=== PATIENT | male | born 1980 | race American Indian/Alaskan Native ===

== ENCOUNTER 2021-01-20 21:21 | Observation (INO) | payer OTHER ==
[2021-01-20] MEDS ORDERED: ONDANSETRON 4 MG/2 ML INJ IV ONE (21:48)
[2021-01-20] MEDS ORDERED: MORPHINE 4 MG/1 ML INJ IV ONE (22:18)
[2021-01-20] MEDS ORDERED: SODIUM CHLORIDE 0.9% 1000 ML 1,000 ML IV ONE (22:18)
--- NOTE | 2021-01-20 22:33 | Emergency Department Report ---
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 intolerance since this morning. Patient reports 3 episodes of vomiting and diarrhea prior to arrival.. Patient denies fever, hematemesis, melena, hematochezia. No fever reported. No history of use abdominal surgeries. Patient states he last drank wine 2 weeks ago. Patient vomiting upon ED arrival and Zofran 8 mg provided. Patient complains of continued 10/10 epigastric pain that is worse with palpation and movement. - Related Data Allergies Allergy/AdvReac Type Severity Reaction Status Date / Time aspirin Allergy Hives Verified 01/20/21 21:45 ED Review of Systems ROS: Stated complaint: ABDOMINAL PAIN Other details as noted in HPI Comment: All other systems reviewed and negative ED Past Medical Hx - Past Medical History Additional medical history: pancreatitis? ED Physical Exam - General Limitations: No Limitations - Other Other exam information: General: Moderate distress secondary pain Head: Atraumatic Eyes: normal appearance ENT: Moist mucous membranes Neck: Normal appearance, no midline tenderness Chest: Clear to auscultation bilaterally CV: Regular rate and rhythm Abdomen: Soft, normal bowel sounds, epigastric tenderness, nondistended, no rebound or guarding Back: Normal inspection Extremity: Normal inspection, full range of motion Neuro: Alert O x 3, no facial asymmetry, speech clear, no gross motor sensory deficit Psych: Appropriate behavior Skin: No rash ED Course Vital Signs 01/20/21 01/21/21 23:42 00:34 Temperature 98.1 F Pulse Rate 71 Respiratory 12 Rate Blood Pressure 112/66 [Left] O2 Sat by Pulse 100 99 Oximetry - Reevaluation(s) Reevaluation #1: 01/21/21 01:17 Patient did developed vomiting shortly after receiving morphine and there IV Reglan provided. Nurse reports that patient initially went down to 0 after morphine. No further vomiting since Reglan. Pain now rated 3/10 in intensity. 01/21/21 01:22 Patient requesting additional pain medication denies nausea at this time 01/21/21 01:30 Patient vomited once again ED Medical Decision Making - Lab Data Result diagrams: 01/20/21 22:57 01/21/21 00:40 Lab Results 01/20/21 01/20/21 01/20/21 Range/Units 22:57 22:57 22:57 WBC 11.8 H (4.5-11.0) K/mm3 RBC 5.63 H (3.65-5.03) M/mm3 Hgb 14.8 (11.8-15.2) gm/dl Hct 46.3 H (35.5-45.6) % MCV 82 L (84-94) fl MCH 26 L (28-32) pg MCHC 32 (32-34) % RDW 16.9 H (13.2-15.2) % Plt Count 217 (140-440) K/mm3 Add Manual Diff Complete Total Counted 100 Seg Neuts % (Manual) 85.0 H (40.0-70.0) % Lymphocytes % (Manual) 13.0 L (13.4-35.0) % Monocytes % (Manual) 2.0 (0.0-7.3) % Nucleated RBC % Not Reportable Seg Neutrophils # Man 10.0 H (1.8-7.7) K/mm3 Band Neutrophils # 0.0 K/mm3 Lymphocytes # (Manual) 1.5 (1.2-5.4) K/mm3 Abs React Lymphs (Man) 0.0 K/mm3 Monocytes # (Manual) 0.2 (0.0-0.8) K/mm3 Eosinophils # (Manual) 0.0 (0.0-0.4) K/mm3 Basophils # (Manual) 0.0 (0.0-0.1) K/mm3 Metamyelocytes # 0.0 K/mm3 Myelocytes # 0.0 K/mm3 Promyelocytes # 0.0 K/mm3 Blast Cells # 0.0 K/mm3 WBC Morphology Not Reportable Hypersegmented Neuts Not Reportable Hyposegmented Neuts Not Reportable Hypogranular Neuts Not Reportable Smudge Cells Not Reportable Toxic Granulation Not Reportable Toxic Vacuolation Not Reportable Dohle Bodies Not Reportable Pelger-Huet Anomaly Not Reportable Ashwini Rods Not Reportable Platelet Estimate Consistent w auto Clumped Platelets Not Reportable Plt Clumps, EDTA Not Reportable Large Platelets Not Reportable Giant Platelets Not Reportable Platelet Satelliting Not Reportable Plt Morphology Comment Not Reportable RBC Morphology Not Reportable Dimorphic RBCs Not Reportable Polychromasia Not Reportable Hypochromasia Not Reportable Poikilocytosis Not Reportable Anisocytosis Few Microcytosis Not Reportable Macrocytosis Not Reportable Spherocytes Not Reportable Pappenheimer Bodies Not Reportable Sickle Cells Not Reportable Target Cells Few Tear Drop Cells Not Reportable Ovalocytes Not Reportable Helmet Cells Not Reportable [place] Bodies Not Reportable [place] Rings Not Reportable [place] Cells Not Reportable Bite Cells Not Reportable Crenated Cell Not Reportable Elliptocytes Not Reportable Acanthocytes (Spur) Not Reportable Rouleaux Not Reportable Hemoglobin C Crystals Not Reportable Schistocytes Rare Malaria parasites Not Reportable Matthew Bodies Not Reportable Hem Pathologist Commnt No Sodium 136 L (137-145) mmol/L Potassium TNR Chloride 102.1 (98-107) mmol/L Carbon Dioxide 23 (22-30) mmol/L Anion Gap 19 mmol/L BUN 19 (9-20) mg/dL Creatinine 0.9 (0.8-1.3) mg/dL Estimated GFR > 60 ml/min BUN/Creatinine Ratio 21 % Glucose 137 H (75-100) mg/dL Calcium 9.1 (8.4-10.2) mg/dL Magnesium 1.80 (1.7-2.3) mg/dL Total Bilirubin 0.30 (0.1-1.2) mg/dL AST 56 H (5-40) units/L ALT 50 (7-56) units/L Alkaline Phosphatase 84 (35-129) units/L Total Protein 8.0 (6.3-8.2) g/dL Albumin 5.0 (3.9-5) g/dL Albumin/Globulin Ratio 1.7 % Lipase 15 (13-60) units/L Urine Color (Yellow) Urine Turbidity (Clear) Urine pH (5.0-7.0) Ur Specific [place] (1.003-1.030) Urine Protein (Negative) mg/dL Urine Glucose (UA) (Negative) mg/dL Urine Ketones (Negative) mg/dL Urine Blood (Negative) Urine Nitrite (Negative) Urine Bilirubin (Negative) Urine Urobilinogen (<2.0) mg/dL Ur Leukocyte Esterase (Negative) Urine WBC (Auto) (0.0-6.0) /HPF Urine RBC (Auto) (0.0-6.0) /HPF U Epithel Cells (Auto) (0-13.0) /HPF Urine Mucus /HPF Plasma/Serum Alcohol < 0.01 (0-0.07) % 01/21/21 01/21/21 Range/Units 00:40 00:57 WBC (4.5-11.0) K/mm3 RBC (3.65-5.03) M/mm3 Hgb (11.8-15.2) gm/dl Hct (35.5-45.6) % MCV (84-94) fl MCH (28-32) pg MCHC (32-34) % RDW (13.2-15.2) % Plt Count (140-440) K/mm3 Add Manual Diff Total Counted Seg Neuts % (Manual) (40.0-70.0) % Lymphocytes % (Manual) (13.4-35.0) % Monocytes % (Manual) (0.0-7.3) % Nucleated RBC % Seg Neutrophils # Man (1.8-7.7) K/mm3 Band Neutrophils # K/mm3 Lymphocytes # (Manual) (1.2-5.4) K/mm3 Abs React Lymphs (Man) K/mm3 Monocytes # (Manual) (0.0-0.8) K/mm3 Eosinophils # (Manual) (0.0-0.4) K/mm3 Basophils # (Manual) (0.0-0.1) K/mm3 Metamyelocytes # K/mm3 Myelocytes # K/mm3 Promyelocytes # K/mm3 Blast Cells # K/mm3 WBC Morphology Hypersegmented Neuts Hyposegmented Neuts Hypogranular Neuts Smudge Cells Toxic Granulation Toxic Vacuolation Dohle Bodies Pelger-Huet Anomaly Ashwini Rods Platelet Estimate Clumped Platelets Plt Clumps, EDTA Large Platelets Giant Platelets Platelet Satelliting Plt Morphology Comment RBC Morphology Dimorphic RBCs Polychromasia Hypochromasia Poikilocytosis Anisocytosis Microcytosis Macrocytosis Spherocytes Pappenheimer Bodies Sickle Cells Target Cells Tear Drop Cells Ovalocytes Helmet Cells [place] Bodies [place] Rings [place] Cells Bite Cells Crenated Cell Elliptocytes Acanthocytes (Spur) Rouleaux Hemoglobin C Crystals Schistocytes Malaria parasites Matthew Bodies Hem Pathologist Commnt Sodium (137-145) mmol/L Potassium 4.7 Chloride (98-107) mmol/L Carbon Dioxide (22-30) mmol/L Anion Gap mmol/L BUN (9-20) mg/dL Creatinine (0.8-1.3) mg/dL Estimated GFR ml/min BUN/Creatinine Ratio % Glucose (75-100) mg/dL Calcium (8.4-10.2) mg/dL Magnesium (1.7-2.3) mg/dL Total Bilirubin (0.1-1.2) mg/dL AST (5-40) units/L ALT (7-56) units/L Alkaline Phosphatase (35-129) units/L Total Protein (6.3-8.2) g/dL Albumin (3.9-5) g/dL Albumin/Globulin Ratio % Lipase (13-60) units/L Urine Color Yellow (Yellow) Urine Turbidity Clear (Clear) Urine pH 5.0 (5.0-7.0) Ur Specific [place] 1.055 H (1.003-1.030) Urine Protein <15 mg/dl (Negative) mg/dL Urine Glucose (UA) Neg (Negative) mg/dL Urine Ketones 20 (Negative) mg/dL Urine Blood Neg (Negative) Urine Nitrite Neg (Negative) Urine Bilirubin Neg (Negative) Urine Urobilinogen < 2.0 (<2.0) mg/dL Ur Leukocyte Esterase Tr (Negative) Urine WBC (Auto) 7.0 H (0.0-6.0) /HPF Urine RBC (Auto) 7.0 (0.0-6.0) /HPF U Epithel Cells (Auto) < 1.0 (0-13.0) /HPF Urine Mucus 1+ /HPF Plasma/Serum Alcohol (0-0.07) % - EKG Data -: EKG Interpreted by Me EKG shows normal: sinus rhythm, intervals (qtc 402), ST-T waves (no stemi) Rate: normal (67) - EKG Data When compared to previous EKG there are: previous EKG unavailable - Radiology Data Radiology results: report reviewed CT ABDOMEN AND PELVIS WITH CONTRAST INDICATION: Pt complains of epigastric abd pain with nausea and vomiting. CONTRAST: 100 cc Omnipaque 300 IV COMPARISON: None available. All CT scans at this location are performed using CT dose reduction for ALARA by means of automated exposure control. FINDINGS: Lung bases are clear of infiltrates. No pneumoperitoneum is seen. Liver is enlarged and has a length of 21 cm. Spleen is not enlarged. No masses are seen. Gallbladder and bile ducts appear within normal limits. No bowel or urinary obstructive changes are seen. Appendix appears within normal limits. No lymphadenopathy is seen. Only minimal nonspecific free fluid is noted. The descending colon and rectosigmoid colon are not well distended for evaluation but there appears to be mild wall edema and slight surrounding inflammation. Findings are consistent with mild colitis. No obvious complication is seen. IMPRESSION: Evidence of mild colitis of the descending and rectosigmoid colon - Medical Decision Making 40-year-old male presents to the hospital nausea, vomiting, diarrhea. States he had same symptoms despite treatment in ED with morphine, Zofran, and Reglan. Positive dehydration. IV fluids provided. CT suggestive of colitis without signs of pancreatitis. Initial hyperkalemia due to hemolysis was normal upon repeat. Case discussed with hospitalist for admission for further treatment. Patient treated with Levaquin and Flagyl patient does not endorse UTI symptoms despite 7 white cells any UA. Critical Care Time: No Critical care attestation.: If time is entered above; I have spent that time in minutes in the direct care of this critically ill patient, excluding procedure time. ED Disposition Clinical Impression: Colitis, Dehydration, UTI (urinary tract infection), Intractable vomiting, Intractable abdominal pain Disposition: ADMITTED INPATIENT Is pt being admited?: No Does the pt Need Aspirin: No Condition: Stable Time of Disposition: 01:31
[2021-01-20] MEDS ORDERED: diphenhydrAMINE 50 MG/ML VIAL IV ONE (22:54)
[2021-01-20] MEDS ORDERED: METOCLOPRAMIDE 10 MG/2 ML INJ IV ONE (22:54)
[2021-01-20 23:16] LABS: Hematocrit 46.3 % (35.5-45.6); Hemoglobin 14.8 gm/dl (11.8-15.2); Mean Corpuscular HGB Conc 32 % (32-34); Mean Corpuscular Volume 82 fl (84-94); Platelet Count 217 K/mm3 (140-440); Red Blood Count 5.63 M/mm3 (3.65-5.03); Red Cell Distribution Width 16.9 % (13.2-15.2)
[2021-01-20 23:48] LABS: Alanine Aminotransferase 50 units/L (7-56); BUN/Creatinine Ratio 21; Blood Urea Nitrogen 19 mg/dL (9-20); Calcium 9.1 mg/dL (8.4-10.2)
[2021-01-21] MEDS ORDERED: SODIUM CHLORIDE 0.9% 1000 ML 1,000 ML IV ONE (00:39)
[2021-01-21 01:05] LABS: Total Cells Counted 100
[2021-01-21 01:07] LABS: Target Cells Few
[2021-01-21 01:08] LABS: Anisocytosis Few; Platelet Estimate Consistent w Auto; Schistocytes Rare
[2021-01-21 01:10] LABS: Bilirubin,Urine NEG (Negative); Blood,Urine NEG (Negative); Color,Urine Yellow (Yellow); Mucus,Urine 1+ /HPF; Protein,Urine <15 mg/dL mg/dL (Negative); Urobilinogen,Urine < 2.0 mg/dL (<2.0)
--- NOTE | 2021-01-21 01:17 | Cat Scan Report ---
CT ABDOMEN AND PELVIS WITH CONTRAST INDICATION: Pt complains of epigastric abd pain with nausea and vomiting. CONTRAST: 100 cc Omnipaque 300 IV COMPARISON: None available. All CT scans at this location are performed using CT dose reduction for ALARA by means of automated e xposure control. FINDINGS: Lung bases are clear of infiltrates. No pneumoperitoneum is seen. Liver is enlarged and has a length of 21 cm. Spleen is not enlarged. No masses are seen. Gallbladder and bile ducts appear wit hin normal limits. No bowel or urinary obstructive changes are seen. Appendix appears within normal l imits. No lymphadenopathy is seen. Only minimal nonspecific free fluid is noted. The descending colon and rectosigmoid colon are not well distended for evaluation but there appears t o be mild wall edema and slight surrounding inflammation. Findings are consistent with mild colitis. No obvious complication is seen. IMPRESSION: Evidence of mild colitis of the descending and rectosigmoid colon Signer Name: Blaine Rivers MD Signed: 01/21/2021 1:12 AM Workstation Name: [id number]
[2021-01-21] MEDS ORDERED: MORPHINE 4 MG/1 ML INJ IV ONE (01:22)
[2021-01-21] MEDS ORDERED: metroNIDAZOLE/NS 500 MG/100 ML 500 MG/100 ML BAG IV ONE (01:23)
[2021-01-21] MEDS ORDERED: NALOXONE 0.4 MG/1 ML INJ IV PRN (03:00)
[2021-01-21] MEDS ORDERED: MORPHINE 2 MG/1 ML INJ IV PRN (03:00)
[2021-01-21] MEDS ORDERED: LORazepam 2 MG/ML VIAL IV PRN (03:00)
[2021-01-21] MEDS ORDERED: ACETAMINOPHEN 325 MG TAB PO PRN (03:00)
[2021-01-21] MEDS ORDERED: ONDANSETRON 4 MG/2 ML INJ IV PRN (03:00)
[2021-01-21] MEDS ORDERED: METOCLOPRAMIDE 10 MG/2 ML INJ IV PRN (03:00)
[2021-01-21] MEDS ORDERED: MORPHINE 4 MG/1 ML INJ IV PRN (03:00)
--- NOTE | 2021-01-21 03:23 | History and Physical Report ---
History of Present Illness Date of examination: 01/21/21 Date of admission: 01/21/2021 Chief complaint: Nausea, vomiting, abdominal pain History of present illness: 40-year-old male with history of alcohol induced pancreatitis who presents to [facility] ED with complaints of abdominal pain, nausea, vomiting, and diarrhea on day. Patient reports nausea and inability to tolerate oral intake since this morning. He complains of multiple (3-4 episodes prior to arriving to the ED, and 4-5 episodes while in the ED) episodes of vomiting. Denies hematemesis endorses diarrhea, but denies hematochezia or melena. Additionally patient complains of 10/10 sharp constant abdominal pain which is worse with palpation and movement, and relieved with pain meds. Reports he last drank wine approximately 2 weeks ago. Denies any other recent alcohol intake, or illicit drug use/abuse. Denies fever, chills, constipation, hematemesis, hemoptysis, recent alcohol intake, history of abdominal surgery, flank pain, hematuria, loss of smell/taste, headache, body aches, or recent sick contacts Past History Past Medical History: other (Alcohol induced pancreatitis) Past Surgical History: No surgical history Social history: lives with family, alcohol abuse, full code. denies: smoking, prescription drug abuse, IV drug use Family history: no significant family history Medications and Allergies Allergies Allergy/AdvReac Type Severity Reaction Status Date / Time aspirin Allergy Hives Verified 01/20/21 21:45 Active Meds: Active Medications Acetaminophen (Acetaminophen 325 Mg Tab) 650 mg PO Q4H PRN PRN Reason: Pain MILD(1-3)/Fever >100.5/BERNAL Famotidine (Famotidine 20 Mg/2 Ml Inj) 20 mg IV BID RONNIE Heparin Sodium (Porcine) (Heparin 5,000 Unit/1 Ml Vial) 5,000 unit SUB-Q Q12HR RONNIE Dextrose/Sodium Chloride (D5/0.45ns) 1,000 mls @ 100 mls/hr IV DIRECT RONNIE Piperacillin Sod/Tazobactam Sod (Zosyn/Ns 4.5gm/100ml) 4.5 gm in 100 mls @ 200 mls/hr IV Q8H RONNIE; Protocol Lorazepam (Lorazepam 2 Mg/Ml Vial) 2 mg IV Q1H PRN PRN Reason: CIWA-Ar 8-15 Metoclopramide HCl (Metoclopramide 10 Mg/2 Ml Inj) 10 mg IV Q6H PRN PRN Reason: Nausea And Vomiting Morphine Sulfate (Morphine 2 Mg/1 Ml Inj) 2 mg IV Q4H PRN PRN Reason: Pain, Moderate (4-6) Morphine Sulfate (Morphine 4 Mg/1 Ml Inj) 4 mg IV Q4H PRN PRN Reason: Pain , Severe (7-10) Naloxone HCl (Naloxone 0.4 Mg/1 Ml Inj) 0.1 mg IV Q2MIN PRN PRN Reason: Res Rate </= 8 or 02 SAT < 92% Ondansetron HCl (Ondansetron 4 Mg/2 Ml Inj) 4 mg IV Q6H PRN PRN Reason: Nausea And Vomiting Sodium Chloride (Sodium Chloride 0.9% 10 Ml Flush Syringe) 10 ml IV BID RONNIE Sodium Chloride (Sodium Chloride 0.9% 10 Ml Flush Syringe) 10 ml IV PRN PRN PRN Reason: LINE FLUSH Review of Systems All systems: negative (As noted in HPI) Exam - Physical Exam Narrative exam: Physical exam General appearance: Present: No acute distress, alert and oriented 3, adult male - EENT Eyes: Present: PERRL, EOM intact ENT: hearing intact, normal dentition - Neck Neck: Present: supple, normal ROM - Respiratory Respiratory effort: Non-labored Respiratory: Clear throughout - Cardiovascular Heart rate: 88 (bpm) Rhythm: Sinus Heart Sounds: Present: S1 & S2. Absent: rub, click - Extremities Extremities: no ischemia, pulses intact, - Peripheral Assessment Peripheral Pulses: within normal limits - Abdominal General gastrointestinal: soft, epigastric tenderness, normal bowel sounds - Integumentary Integumentary: Present: warm, dry - Musculoskeletal Musculoskeletal: Able to move all extremities -Neurological Neurological: CN II-XII intact - Psychiatric Psychiatric: cooperative - Constitutional Vitals: Temp Pulse Resp BP Pulse Ox 98.1 F 74 11 L 102/49 98 01/20/21 23:42 01/21/21 02:00 01/21/21 02:00 01/21/21 02:00 01/21/21 02:00 Results - Labs CBC & Chem 7: 01/20/21 22:57 01/21/21 00:40 Labs: Laboratory Last Values WBC 11.8 K/mm3 (4.5-11.0) H 01/20/21 22:57 RBC 5.63 M/mm3 (3.65-5.03) H 01/20/21 22:57 Hgb 14.8 gm/dl (11.8-15.2) 01/20/21 22:57 Hct 46.3 % (35.5-45.6) H 01/20/21 22:57 MCV 82 fl (84-94) L 01/20/21 22:57 MCH 26 pg (28-32) L 01/20/21 22:57 MCHC 32 % (32-34) 01/20/21 22:57 RDW 16.9 % (13.2-15.2) H 01/20/21 22:57 Plt Count 217 K/mm3 (140-440) 01/20/21 22:57 Add Manual Diff Complete 01/20/21 22:57 Total Counted 100 01/20/21 22:57 Seg Neuts % (Manual) 85.0 % (40.0-70.0) H 01/20/21 22:57 Lymphocytes % (Manual) 13.0 % (13.4-35.0) L 01/20/21 22:57 Monocytes % (Manual) 2.0 % (0.0-7.3) 01/20/21 22:57 Nucleated RBC % Not Reportable 01/20/21 22:57 Seg Neutrophils # Man 10.0 K/mm3 (1.8-7.7) H 01/20/21 22:57 Band Neutrophils # 0.0 K/mm3 01/20/21 22:57 Lymphocytes # (Manual) 1.5 K/mm3 (1.2-5.4) 01/20/21 22:57 Abs React Lymphs (Man) 0.0 K/mm3 01/20/21 22:57 Monocytes # (Manual) 0.2 K/mm3 (0.0-0.8) 01/20/21 22:57 Eosinophils # (Manual) 0.0 K/mm3 (0.0-0.4) 01/20/21 22:57 Basophils # (Manual) 0.0 K/mm3 (0.0-0.1) 01/20/21 22:57 Metamyelocytes # 0.0 K/mm3 01/20/21 22:57 Myelocytes # 0.0 K/mm3 01/20/21 22:57 Promyelocytes # 0.0 K/mm3 01/20/21 22:57 Blast Cells # 0.0 K/mm3 01/20/21 22:57 WBC Morphology Not Reportable 01/20/21 22:57 Hypersegmented Neuts Not Reportable 01/20/21 22:57 Hyposegmented Neuts Not Reportable 01/20/21 22:57 Hypogranular Neuts Not Reportable 01/20/21 22:57 Smudge Cells Not Reportable 01/20/21 22:57 Toxic Granulation Not Reportable 01/20/21 22:57 Toxic Vacuolation Not Reportable 01/20/21 22:57 Dohle Bodies Not Reportable 01/20/21 22:57 Pelger-Huet Anomaly Not Reportable 01/20/21 22:57 Ashwini Rods Not Reportable 01/20/21 22:57 Platelet Estimate Consistent w auto 01/20/21 22:57 Clumped Platelets Not Reportable 01/20/21 22:57 Plt Clumps, EDTA Not Reportable 01/20/21 22:57 Large Platelets Not Reportable 01/20/21 22:57 Giant Platelets Not Reportable 01/20/21 22:57 Platelet Satelliting Not Reportable 01/20/21 22:57 Plt Morphology Comment Not Reportable 01/20/21 22:57 RBC Morphology Not Reportable 01/20/21 22:57 Dimorphic RBCs Not Reportable 01/20/21 22:57 Polychromasia Not Reportable 01/20/21 22:57 Hypochromasia Not Reportable 01/20/21 22:57 Poikilocytosis Not Reportable 01/20/21 22:57 Anisocytosis Few 01/20/21 22:57 Microcytosis Not Reportable 01/20/21 22:57 Macrocytosis Not Reportable 01/20/21 22:57 Spherocytes Not Reportable 01/20/21 22:57 Pappenheimer Bodies Not Reportable 01/20/21 22:57 Sickle Cells Not Reportable 01/20/21 22:57 Target Cells Few 01/20/21 22:57 Tear Drop Cells Not Reportable 01/20/21 22:57 Ovalocytes Not Reportable 01/20/21 22:57 Helmet Cells Not Reportable 01/20/21 22:57 [place] Bodies Not Reportable 01/20/21 22:57 [place] Rings Not Reportable 01/20/21 22:57 [place] Cells Not Reportable 01/20/21 22:57 Bite Cells Not Reportable 01/20/21 22:57 Crenated Cell Not Reportable 01/20/21 22:57 Elliptocytes Not Reportable 01/20/21 22:57 Acanthocytes (Spur) Not Reportable 01/20/21 22:57 Rouleaux Not Reportable 01/20/21 22:57 Hemoglobin C Crystals Not Reportable 01/20/21 22:57 Schistocytes Rare 01/20/21 22:57 Malaria parasites Not Reportable 01/20/21 22:57 Matthew Bodies Not Reportable 01/20/21 22:57 Hem Pathologist Commnt No 01/20/21 22:57 Sodium 136 mmol/L (137-145) L 01/20/21 22:57 Potassium 4.7 mmol/L (3.6-5.0) 01/21/21 00:40 Chloride 102.1 mmol/L (98-107) 01/20/21 22:57 Carbon Dioxide 23 mmol/L (22-30) 01/20/21 22:57 Anion Gap 19 mmol/L 01/20/21 22:57 BUN 19 mg/dL (9-20) 01/20/21 22:57 Creatinine 0.9 mg/dL (0.8-1.3) 01/20/21 22:57 Estimated GFR > 60 ml/min 01/20/21 22:57 BUN/Creatinine Ratio 21 % 01/20/21 22:57 Glucose 137 mg/dL (75-100) H 01/20/21 22:57 Calcium 9.1 mg/dL (8.4-10.2) 01/20/21 22:57 Phosphorus 2.90 mg/dL (2.5-4.5) 01/21/21 02:38 Magnesium 1.70 mg/dL (1.7-2.3) 01/21/21 02:38 Total Bilirubin 0.30 mg/dL (0.1-1.2) 01/20/21 22:57 AST 56 units/L (5-40) H 01/20/21 22:57 ALT 50 units/L (7-56) 01/20/21 22:57 Alkaline Phosphatase 84 units/L (35-129) 01/20/21 22:57 Total Protein 8.0 g/dL (6.3-8.2) 01/20/21 22:57 Albumin 5.0 g/dL (3.9-5) 01/20/21 22:57 Albumin/Globulin Ratio 1.7 % 01/20/21 22:57 Lipase 15 units/L (13-60) 01/20/21 22:57 Urine Color Yellow (Yellow) 01/21/21 00:57 Urine Turbidity Clear (Clear) 01/21/21 00:57 Urine pH 5.0 (5.0-7.0) 01/21/21 00:57 Ur Specific [place] 1.055 (1.003-1.030) H 01/21/21 00:57 Urine Protein <15 mg/dl mg/dL (Negative) 01/21/21 00:57 Urine Glucose (UA) Neg mg/dL (Negative) 01/21/21 00:57 Urine Ketones 20 mg/dL (Negative) 01/21/21 00:57 Urine Blood Neg (Negative) 01/21/21 00:57 Urine Nitrite Neg (Negative) 01/21/21 00:57 Urine Bilirubin Neg (Negative) 01/21/21 00:57 Urine Urobilinogen < 2.0 mg/dL (<2.0) 01/21/21 00:57 Ur Leukocyte Esterase Tr (Negative) 01/21/21 00:57 Urine WBC (Auto) 7.0 /HPF (0.0-6.0) H 01/21/21 00:57 Urine RBC (Auto) 7.0 /HPF (0.0-6.0) 01/21/21 00:57 U Epithel Cells (Auto) < 1.0 /HPF (0-13.0) 01/21/21 00:57 Urine Mucus 1+ /HPF 01/21/21 00:57 Plasma/Serum Alcohol < 0.01 % (0-0.07) 01/20/21 22:57 - Imaging and Cardiology Imaging and Cardiology: CT Abd/Pelvis: CT ABDOMEN AND PELVIS WITH CONTRAST INDICATION: Pt complains of epigastric abd pain with nausea and vomiting. CONTRAST: 100 cc Omnipaque 300 IV COMPARISON: None available. All CT scans at this location are performed using CT dose reduction for ALARA by means of automated exposure control. FINDINGS: Lung bases are clear of infiltrates. No pneumoperitoneum is seen. Liver is enlarged and has a length of 21 cm. Spleen is not enlarged. No masses are seen. Gallbladder and bile ducts appear within normal limits. No bowel or urinary obstructive changes are seen. Appendix appears within normal limits. No lymphadenopathy is seen. Only minimal nonspecific free fluid is noted. The descending colon and rectosigmoid colon are not well distended for evaluation but there appears to be mild wall edema and slight surrounding inflammation. Findings are consistent with mild colitis. No obvious complication is seen. IMPRESSION: Evidence of mild colitis of the descending and rectosigmoid colon Assessment and Plan Assessment and plan: Colitis -CT abdomen pelvis shows mild colitis of the descending and rectosigmoid colon -On IV ABX -Supportive care -Dayteam consider GI consult Intractable nausea and vomiting -N.p.o. for now, day team may consider starting on clear diet and advance as tolerated -On antiemetics Intractable abdominal pain -Likely secondary to colitis -Supportive care Urinary tract infection -UA positive for UTI -Urine culture pending -on IV Abx History of alcohol induced pancreatitis -Noted -Denies abdominal surgical history DVT PPX -On Heparin Advance Directives: No VTE prophylaxis?: Chemical, Mechanical Plan of care discussed with patient/family: Yes
[2021-01-21] MEDS: PIPERACIL/TAZOBACTA 4.5/NS 100 4.5 GM/100 ML VIAL IV SCH ×3 (03:58→20:50)
[2021-01-21] MEDS: D5W/0.45% NACL 1,000 ML IV SCH ×2 (04:29→21:55)
--- NOTE | 2021-01-21 09:40 | Event Note ---
Date: 01/21/21 This is a follow-up from an admission earlier this morning. Patient was seen and examined. We will continue to plan as outlined in the H&P. I consulted GI and ordered stool studies for the colitis. Total time equals 35 minutes with greater than 50% spent on coordination of care and counseling
[2021-01-21] MEDS: HEPARIN 5,000 UNIT/1 ML VIAL SUB-Q SCH ×2 (10:06→21:47)
[2021-01-21] MEDS: FAMOTIDINE 20 MG/2 ML INJ IV SCH ×2 (10:06→21:47)
--- NOTE | 2021-01-21 18:44 | Gastroenterology Consultation ---
History of Present Illness - Reason for Consult Consult date: 01/21/21 abdominal pain, colitis Requesting physician: BRIDGET RODRIGUEZ - History of Present Illness The patient is a 40 yo male who presents with 2-3 day history of mid abdominal pain with n/v and diarrhea. sudden onset sx's a couple days prior to admission. Developed abd pain with n/v/diarrhea that persisted until admission. He believes he had recent sick contact the day prior (friends mom who also had n/v symptoms). he denies prior similar sx's. no gi bleeding signs. reports improvement in sx's at the time of exam and requesting to try po intake. diarrhea has also improved. Past History Past Medical History: other (Alcohol induced pancreatitis) Past Surgical History: No surgical history Social history: lives with family, alcohol abuse, full code. denies: smoking, prescription drug abuse, IV drug use Family history: no significant family history Medications and Allergies Allergies Allergy/AdvReac Type Severity Reaction Status Date / Time aspirin Allergy Hives Verified 01/20/21 21:45 Active Meds: Active Medications Acetaminophen (Acetaminophen 325 Mg Tab) 650 mg PO Q4H PRN PRN Reason: Pain MILD(1-3)/Fever >100.5/BERNAL Famotidine (Famotidine 20 Mg/2 Ml Inj) 20 mg IV BID RONNIE Last Admin: 01/21/21 10:06 Dose: 20 mg Documented by: Heparin Sodium (Porcine) (Heparin 5,000 Unit/1 Ml Vial) 5,000 unit SUB-Q Q12HR RONNIE Last Admin: 01/21/21 10:06 Dose: 5,000 unit Documented by: Dextrose/Sodium Chloride (D5/0.45ns) 1,000 mls @ 100 mls/hr IV DIRECT RONNIE Last Admin: 01/21/21 04:29 Dose: 100 mls/hr Documented by: Piperacillin Sod/Tazobactam Sod (Zosyn/Ns 4.5gm/100ml) 4.5 gm in 100 mls @ 200 mls/hr IV Q8H RONNIE; Protocol Last Admin: 01/21/21 11:41 Dose: 200 mls/hr Documented by: Lorazepam (Lorazepam 2 Mg/Ml Vial) 2 mg IV Q1H PRN PRN Reason: CIWA-Ar 8-15 Metoclopramide HCl (Metoclopramide 10 Mg/2 Ml Inj) 10 mg IV Q6H PRN PRN Reason: Nausea And Vomiting Morphine Sulfate (Morphine 2 Mg/1 Ml Inj) 2 mg IV Q4H PRN PRN Reason: Pain, Moderate (4-6) Morphine Sulfate (Morphine 4 Mg/1 Ml Inj) 4 mg IV Q4H PRN PRN Reason: Pain , Severe (7-10) Naloxone HCl (Naloxone 0.4 Mg/1 Ml Inj) 0.1 mg IV Q2MIN PRN PRN Reason: Res Rate </= 8 or 02 SAT < 92% Ondansetron HCl (Ondansetron 4 Mg/2 Ml Inj) 4 mg IV Q6H PRN PRN Reason: Nausea And Vomiting Sodium Chloride (Sodium Chloride 0.9% 10 Ml Flush Syringe) 10 ml IV BID RONNIE Last Admin: 01/21/21 10:06 Dose: 10 ml Documented by: Sodium Chloride (Sodium Chloride 0.9% 10 Ml Flush Syringe) 10 ml IV PRN PRN PRN Reason: LINE FLUSH Reviewed/updated patient's home and current medications Review of Systems - Review of Systems All systems: negative (per HPI) Exam - Constitutional Vital Signs: Temp Pulse Resp BP Pulse Ox 98.7 F 75 18 118/76 96 01/21/21 10:57 01/21/21 10:57 01/21/21 10:57 01/21/21 10:57 01/21/21 11:42 General appearance: no acute distress - Respiratory Respiratory effort: normal Respiratory: bilateral: CTA - Cardiovascular Rhythm: regular Heart Sounds: Present: S1 & S2 - Gastrointestinal General gastrointestinal: Present: soft, non-tender, non-distended - Integumentary Integumentary: Present: clear, warm - Neurologic Neurological: alert and oriented x3 - Psychiatric Psychiatric: appropriate mood/affect - Labs CBC & Chem 7: 01/20/21 22:57 01/21/21 00:40 Lab Results: Laboratory Results - last 24 hr 01/20/21 01/20/21 01/20/21 22:57 22:57 22:57 WBC 11.8 H RBC 5.63 H Hgb 14.8 Hct 46.3 H MCV 82 L MCH 26 L MCHC 32 RDW 16.9 H Plt Count 217 Add Manual Diff Complete Total Counted 100 Seg Neuts % (Manual) 85.0 H Lymphocytes % (Manual) 13.0 L Monocytes % (Manual) 2.0 Nucleated RBC % Not Reportable Seg Neutrophils # Man 10.0 H Band Neutrophils # 0.0 Lymphocytes # (Manual) 1.5 Abs React Lymphs (Man) 0.0 Monocytes # (Manual) 0.2 Eosinophils # (Manual) 0.0 Basophils # (Manual) 0.0 Metamyelocytes # 0.0 Myelocytes # 0.0 Promyelocytes # 0.0 Blast Cells # 0.0 WBC Morphology Not Reportable Hypersegmented Neuts Not Reportable Hyposegmented Neuts Not Reportable Hypogranular Neuts Not Reportable Smudge Cells Not Reportable Toxic Granulation Not Reportable Toxic Vacuolation Not Reportable Dohle Bodies Not Reportable Pelger-Huet Anomaly Not Reportable Ashwini Rods Not Reportable Platelet Estimate Consistent w auto Clumped Platelets Not Reportable Plt Clumps, EDTA Not Reportable Large Platelets Not Reportable Giant Platelets Not Reportable Platelet Satelliting Not Reportable Plt Morphology Comment Not Reportable RBC Morphology Not Reportable Dimorphic RBCs Not Reportable Polychromasia Not Reportable Hypochromasia Not Reportable Poikilocytosis Not Reportable Anisocytosis Few Microcytosis Not Reportable Macrocytosis Not Reportable Spherocytes Not Reportable Pappenheimer Bodies Not Reportable Sickle Cells Not Reportable Target Cells Few Tear Drop Cells Not Reportable Ovalocytes Not Reportable Helmet Cells Not Reportable [place] Bodies Not Reportable [employer] [place] Rings Not Reportable Karlee Cells Not Reportable Bite Cells Not Reportable Crenated Cell Not Reportable Elliptocytes Not Reportable Acanthocytes (Spur) Not Reportable Rouleaux Not Reportable Hemoglobin C Crystals Not Reportable Schistocytes Rare Malaria parasites Not Reportable Matthew Bodies Not Reportable Hem Pathologist Commnt No Sodium 136 L Potassium TNR Chloride 102.1 Carbon Dioxide 23 Anion Gap 19 BUN 19 Creatinine 0.9 Estimated GFR > 60 BUN/Creatinine Ratio 21 Glucose 137 H Calcium 9.1 Phosphorus Magnesium 1.80 Total Bilirubin 0.30 AST 56 H ALT 50 Alkaline Phosphatase 84 Total Protein 8.0 Albumin 5.0 Albumin/Globulin Ratio 1.7 Lipase 15 Urine Color Urine Turbidity Urine pH Ur Specific [place] Urine Protein Urine Glucose (UA) Urine Ketones Urine Blood Urine Nitrite Urine Bilirubin Urine Urobilinogen Ur Leukocyte Esterase Urine WBC (Auto) Urine RBC (Auto) U Epithel Cells (Auto) Urine Mucus Plasma/Serum Alcohol < 0.01 01/21/21 01/21/21 01/21/21 00:40 00:57 02:38 WBC RBC Hgb Hct MCV MCH MCHC RDW Plt Count Add Manual Diff Total Counted Seg Neuts % (Manual) Lymphocytes % (Manual) Monocytes % (Manual) Nucleated RBC % Seg Neutrophils # Man Band Neutrophils # Lymphocytes # (Manual) Abs React Lymphs (Man) Monocytes # (Manual) Eosinophils # (Manual) Basophils # (Manual) Metamyelocytes # Myelocytes # Promyelocytes # Blast Cells # WBC Morphology Hypersegmented Neuts Hyposegmented Neuts Hypogranular Neuts Smudge Cells Toxic Granulation Toxic Vacuolation Dohle Bodies Pelger-Huet Anomaly Ashwini Rods Platelet Estimate Clumped Platelets Plt Clumps, EDTA Large Platelets Giant Platelets Platelet Satelliting Plt Morphology Comment RBC Morphology Dimorphic RBCs Polychromasia Hypochromasia Poikilocytosis Anisocytosis Microcytosis Macrocytosis Spherocytes Pappenheimer Bodies Sickle Cells Target Cells Tear Drop Cells Ovalocytes Helmet Cells [place] Bodies [employer] [place] Rings Karlee Cells Bite Cells Crenated Cell Elliptocytes Acanthocytes (Spur) Rouleaux Hemoglobin C Crystals Schistocytes Malaria parasites Matthew Bodies Hem Pathologist Commnt Sodium Potassium 4.7 Chloride Carbon Dioxide Anion Gap BUN Creatinine Estimated GFR BUN/Creatinine Ratio Glucose Calcium Phosphorus 2.90 Magnesium 1.70 Total Bilirubin AST ALT Alkaline Phosphatase Total Protein Albumin Albumin/Globulin Ratio Lipase Urine Color Yellow Urine Turbidity Clear Urine pH 5.0 Ur Specific [place] 1.055 H Urine Protein <15 mg/dl Urine Glucose (UA) Neg Urine Ketones 20 Urine Blood Neg Urine Nitrite Neg Urine Bilirubin Neg Urine Urobilinogen < 2.0 Ur Leukocyte Esterase Tr Urine WBC (Auto) 7.0 H Urine RBC (Auto) 7.0 U Epithel Cells (Auto) < 1.0 Urine Mucus 1+ Plasma/Serum Alcohol - Imaging CT Scan: report reviewed Assessment and Plan 1. Abdominal pain with n/v and diarrhea 2. ? mild colitis on ct scan -presentation most suggestive of infectious source, improved sx's today, okay to try po intake and advance as tolerated, cont supportive care. if tolerating po, can be discharged from gi stand point with outpatient follow-up in gi clinic. will sign off, please call as needed.
[2021-01-22] MEDS: PIPERACIL/TAZOBACTA 4.5/NS 100 4.5 GM/100 ML VIAL IV SCH ×2 (03:46→10:28)
[2021-01-22] MEDS: D5W/0.45% NACL 1,000 ML IV SCH (06:31)
[2021-01-22 06:52] VITALS: BP 125/76
--- NOTE | 2021-01-22 08:20 | Discharge Summary ---
Providers - Providers Date of Admission: 01/21/21 01:56 Date of discharge: 01/22/21 Attending physician: BRIDGET RODRIGUEZ 01/21/21 07:29 Consult to Physician [CONS] Routine Comment: Consulting Provider: KERMIT HAWKINS Physician Instructions: Reason For Exam: colitis Primary care physician: GIANT TIRE REPAIRER Hospitalization Reason for admission: Colitis Condition: Stable Hospital course: The patient is a 40 yo male who presents with 2-3 day history of mid abdominal pain with n/v and diarrhea. Patient with sudden onset sx's a couple days prior to admission. Developed abd pain with n/v/diarrhea that persisted until admission. He believes he had recent sick contact the day prior (friends mom who also had n/v symptoms). he denies prior similar sx's. no gi bleeding signs. The patient reported improvement in sx's shortly after admission and requested to try po intake. The patient's diarrhea has also improved. The patient was admitted with diagnosis of acute colitis and treated with IV antibiotics. The patient was seen by GI in consultation who reports that the patient's presentation most suggestive of infectious source. GI felt that if the patient tolerates p.o., he can be discharged home and follow-up with GI as an outpatient. Dedicated discharge time 35 minutes Disposition: 01 HOME / SELF CARE / HOMELESS Final Discharge Diagnosis (Prints w/discharge instructions): Acute colitis Core Measure Documentation - Palliative Care Palliative Care/ Comfort Measures: Not Applicable - Core Measures Any of the following diagnoses?: heart failure, none - Heart Failure Discharge Requirements BRYANT/ARB for LVSD if EF <40%: Yes Beta jerrdo at discharge: Yes Heart failure comment: wrong patient Exam - Constitutional Vitals: Temp Pulse Resp BP Pulse Ox 98.6 F 70 18 125/76 98 01/22/21 04:02 01/22/21 04:02 01/22/21 04:02 01/22/21 04:02 01/22/21 04:02 General appearance: Present: no acute distress, well-nourished - EENT Eyes: Present: PERRL ENT: hearing intact, clear oral mucosa - Neck Neck: Present: supple, normal ROM - Respiratory Respiratory effort: normal Respiratory: bilateral: CTA - Cardiovascular Heart Sounds: Present: S1 & S2. Absent: rub, click - Extremities Extremities: pulses symmetrical, No edema Peripheral Pulses: within normal limits - Abdominal General gastrointestinal: Present: soft, non-tender, non-distended, normal bowel sounds Male genitourinary: Present: normal - Integumentary Integumentary: Present: clear, warm, dry - Musculoskeletal Musculoskeletal: gait normal, strength equal bilaterally - Psychiatric Psychiatric: appropriate mood/affect, intact judgment & insight - Neurologic Neurologic: CNII-XII intact, moves all extremities Plan Activity: advance as tolerated Weight Bearing Status: Weight Bear as Tolerated Diet: regular Follow up with: PRIMARY CAREMD [Primary Care Provider] - 3-5 Days ANTONIO BARBOSA MD [Staff Physician] - 7 Days Prescriptions: metroNIDAZOLE [Flagyl] 500 mg PO Q8HR #21 tablet levoFLOXacin [Levaquin TAB] 500 mg PO QDAY #7 tablet
[2021-01-22] MEDS: FAMOTIDINE 20 MG/2 ML INJ IV SCH (09:53)
[2021-01-22] MEDS: HEPARIN 5,000 UNIT/1 ML VIAL SUB-Q SCH (09:53)
--- NOTE | 2021-01-26 14:15 | Electrocardiograph Report ---
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
== END 2021-01-22 13:17 | disposition home or self-care (01) ==
LOC: ED 21:21 → 4A 01-21 01:56 → 3A 01-21 03:40
PROVIDERS: ADMIT Internal Medicine Geriatric Medicine; ATTEND Hospitalist
DX: K52.9 Noninfective gastroenteritis and colitis, unspecified (principal); N39.0 Urinary tract infection, site not specified; K86.0 Alcohol-induced chronic pancreatitis; E86.0 Dehydration
CPT/HCPCS: 36415; 74177; 80053; 81001; 83690; 83735; 84100; 84132; 85007; 85025; 87040; 87045; 93005; 96361; 96365; 96366; 96367; 96372; 96375; 96376; 99285; G0378; J1200; J1644; J1956; J2270; J2405; J2543; J2765; J7030; Q9967; 80320; J7070; G0480

== ENCOUNTER 2021-03-28 17:06 | Emergency (ER) | payer SELFPAY ==
[2021-03-28 17:10] VITALS: BP 155/98
[2021-03-28] MEDS ORDERED: SODIUM CHLORIDE 0.9% 1000 ML 1,000 ML IV ONE (17:23)
[2021-03-28] MEDS ORDERED: FAMOTIDINE 20 MG/2 ML INJ IV ONE (17:23)
[2021-03-28] MEDS ORDERED: fentaNYL 100 MCG/2 ML INJ IV ONE ×2 (17:23→19:07)
[2021-03-28] MEDS ORDERED: ONDANSETRON 4 MG/2 ML INJ IV ONE (17:23)
--- NOTE | 2021-03-28 17:28 | Emergency Department Report ---
HPI - General Chief Complaint: Nausea/Vomiting/Diarrhea Time Seen by Provider: 03/28/21 17:15 - HPI HPI: MSE 5 The patient is a 40-year-old male present with a chief of nausea vomiting. The patient states he has had intractable nausea vomiting since 05:00 this morning. Patient states his last meal before his symptoms included chicken from the fast food [employer]. The patient states others who ate the same food also have become symptomatic with the same symptoms. Patient admits to subjective fever and periumbilical abdominal pain. Patient denies diarrhea. Patient came to the ED via EMS ED Past Medical Hx - Past Medical History Previous Medical History?: Yes Additional medical history: pancreatitis (diagnosed twice) - Surgical History Past Surgical History?: No - Family History Family history: no significant - Social History Smoking Status: Never Smoker Substance Use Type: Alcohol (Occasional), Marijuana - Medications Home Medications: Home Medications Medication Instructions Recorded Confirmed Last Taken Type levoFLOXacin [Levaquin TAB] 500 mg PO QDAY #7 tablet 01/22/21 Unknown Rx metroNIDAZOLE [Flagyl] 500 mg PO Q8HR #21 tablet 01/22/21 Unknown Rx Famotidine [Pepcid] 20 mg PO BID #20 tablet 03/28/21 Unknown Rx HYDROcodone/APAP 5-325 [[place] 1 - 2 each PO Q6HR PRN #10 tablet 03/28/21 Unknown Rx 5/325] Promethazine [Phenergan] 25 mg PO Q6HR PRN #20 tab 03/28/21 Unknown Rx Promethazine [Phenergan] 25 mg [place] Q6HR PRN #5 supp.rect 03/28/21 Unknown Rx ED Review of Systems ROS: Stated complaint: HEADACHE Other details as noted in HPI Constitutional: fever (Subjective) Eyes: denies: eye pain ENT: denies: throat pain Respiratory: no symptoms reported Cardiovascular: denies: chest pain Endocrine: no symptoms reported Gastrointestinal: abdominal pain, nausea, vomiting. denies: diarrhea Genitourinary: denies: dysuria Musculoskeletal: denies: back pain Neurological: denies: headache Physical Exam - Physical Exam Vital Signs: Vital Signs 03/28/21 17:07 Temperature 98.6 F Pulse Rate 61 Respiratory 18 Rate Blood Pressure 155/98 [Left] O2 Sat by Pulse 100 Oximetry Physical Exam: GENERAL: The patient is well-developed well-nourished male sitting in wheelchair holding emesis bag appearing to be in moderate discomfort. [] HEENT: Normocephalic. Atraumatic. Extraocular motions are intact. Patient has moist mucous membranes. NECK: Supple. Trachea midline CHEST/LUNGS: Clear to auscultation. There is no respiratory distress noted. HEART/CARDIOVASCULAR: Regular. There is no tachycardia. There is no gallop rub or murmur. ABDOMEN: Abdomen is soft, with tenderness to palpation in the periumbilical, epigastric and left upper quad. There is no rebound or guarding. Patient has normal bowel sounds. There is no abdominal distention. SKIN: There is no rash. There is no edema. There is no diaphoresis. NEURO: The patient is awake, alert, and oriented. The patient is cooperative. The patient has no focal neurologic deficits. The patient has normal speech. GCS 15 MUSCULOSKELETAL: There is no evidence of acute injury. ED Course Vital Signs 03/28/21 17:07 Temperature 98.6 F Pulse Rate 61 Respiratory 18 Rate Blood Pressure 155/98 [Left] O2 Sat by Pulse 100 Oximetry - Reevaluation(s) Reevaluation #1: 03/28/21 20:12 Patient tolerating p.o. ED Medical Decision Making - Lab Data Result diagrams: 03/28/21 17:56 03/28/21 17:56 - Differential Diagnosis Gastroenteritis, foodborne illness, pancreatitis Critical care attestation.: If time is entered above; I have spent that time in minutes in the direct care of this critically ill patient, excluding procedure time. ED Disposition Clinical Impression: Nausea and vomiting, Gastritis Disposition: 01 HOME / SELF CARE / HOMELESS Is pt being admited?: No Does the pt Need Aspirin: No Condition: Stable Instructions: Nausea and Vomiting, Adult, Gastritis, Adult Additional Instructions: Return to the emergency department should you develop worsening symptoms, inability to tolerate food or liquids, high fever or any other concerns Prescriptions: HYDROcodone/APAP 5-325 [[place] 5/325] 1 - 2 each PO Q6HR PRN #10 tablet PRN Reason: Pain Famotidine [Pepcid] 20 mg PO BID #20 tablet Promethazine [Phenergan] 25 mg PO Q6HR PRN #20 tab PRN Reason: Nausea Promethazine [Phenergan] 25 mg [place] Q6HR PRN #5 supp.rect PRN Reason: Vomiting Referrals: PRIMARY CARE, [Primary Care Provider] - 3-5 Days JOHN AMANDA MD [Staff Physician] - 3-5 Days (Dr. Amanda is a g astroenterologist. Please follow-up with him for further evaluation) Time of Disposition: 20:16
[2021-03-28 18:09] LABS: Basophils % (Auto) 0.5 % (0.0-1.8); Eosinophils % (Auto) 0.1 % (0.0-4.3); Hemoglobin 13.7 gm/dl (11.8-15.2); Lymphocytes # (Auto) 1.4 K/mm3 (1.2-5.4); Lymphocytes % (Auto) 24.7 % (13.4-35.0); Mean Corpuscular HGB Conc 32 % (32-34); Mean Corpuscular Volume 81 fl (84-94); Monocytes # (Auto) 0.3 K/mm3 (0.0-0.8); Monocytes % (Auto) 6.1 % (0.0-7.3); Platelet Count 211 K/mm3 (140-440); Red Blood Count 5.33 M/mm3 (3.65-5.03); Red Cell Distribution Width 16.6 % (13.2-15.2)
[2021-03-28 18:28] LABS: Alanine Aminotransferase 22 units/L (7-56); Albumin 4.6 g/dL (3.9-5); BUN/Creatinine Ratio 17; Blood Urea Nitrogen 17 mg/dL (9-20); Calcium 9.3 mg/dL (8.4-10.2); Hemolysis Index 30
[2021-03-28] MEDS ORDERED: METOCLOPRAMIDE 10 MG/2 ML INJ IV PRN (19:07)
== END 2021-03-28 20:58 | disposition home or self-care (01) ==
LOC: ED 17:06
DX: R11.2 Nausea with vomiting, unspecified (principal); K29.70 Gastritis, unspecified, without bleeding; F12.90 Cannabis use, unspecified, uncomplicated; F10.20 Alcohol dependence, uncomplicated
CPT/HCPCS: 36415; 80053; 83690; 85025; 96374; 96375; 96376; 99284; J2405; J2765; J3010; J3490; J7030; Q0162

== ENCOUNTER 2021-08-24 13:01 | Emergency (ER) | payer SELFPAY ==
[2021-08-24 13:20] VITALS: BP 143/78
[2021-08-24 14:38] LABS: Bacteria,Urine 1+ /HPF (Negative); Bilirubin,Urine NEG (Negative); Blood,Urine SM (Negative); Color,Urine Yellow (Yellow); Mucus,Urine 2+ /HPF; Urobilinogen,Urine < 2.0 mg/dL (<2.0)
[2021-08-24 15:40] LABS: Basophils % (Auto) 0.5 % (0.0-1.8); Eosinophils % (Auto) 0.2 % (0.0-4.3); Hematocrit 44.2 % (35.5-45.6); Hemoglobin 14.3 gm/dl (11.8-15.2); Lymphocytes # (Auto) 1.1 K/mm3 (1.2-5.4); Lymphocytes % (Auto) 16.3 % (13.4-35.0); Mean Corpuscular HGB Conc 32 % (32-34); Mean Corpuscular Volume 81 fl (84-94); Monocytes # (Auto) 0.4 K/mm3 (0.0-0.8); Monocytes % (Auto) 5.3 % (0.0-7.3); Platelet Count 202 K/mm3 (140-440); Red Blood Count 5.44 M/mm3 (3.65-5.03)
[2021-08-24 15:57] LABS: Alanine Aminotransferase 24 units/L (7-56); Albumin 4.7 g/dL (3.9-5); BUN/Creatinine Ratio 14; Blood Urea Nitrogen 15 mg/dL (9-20); Calcium 9.3 mg/dL (8.4-10.2); Hemolysis Index 33
[2021-08-24] MEDS ORDERED: HYOSCYAMINE SUBL 0.125 MG TAB SL ONE (16:31)
[2021-08-24] MEDS ORDERED: ONDANSETRON 4 MG/2 ML INJ IV STA (16:31)
[2021-08-24] MEDS ORDERED: ONDANSETRON 4 MG ODT TAB PO STA (16:32)
--- NOTE | 2021-08-24 18:26 | Emergency Department Report ---
ED Abdominal Pain HPI - General Chief Complaint: Nausea/Vomiting/Diarrhea Stated Complaint: STOMACH PAIN Time Seen by Provider: 08/24/21 14:13 Source: EMS Mode of arrival: Stretcher Limitations: No Limitations - History of Present Illness Initial Comments: 40-year-old male emergency department complaining epigastric abdominal pain associated with nausea and occasional vomiting but no fever, chills, sweats. Has a previous history of alcoholic pancreatitis in which she feels something similar but denies any current alcohol use she reports no hematemesis no hematochezia, no hematuria, no dysuria, no flank pain. Reports no chest pain or palpitations and no rashes appreciated. There is a possibility of a food poisoning but he is unsure if that is active because he did smoke weed prior to this happening MD Complaint: abdominal pain Location: epigastric Radiation: none Migration to: no migration Severity scale (0 -10): 0 Quality: stabbing, aching, sharp Consistency: constant Improves With: nothing Worsens With: nothing Context: possible food poisoning, other (Possible cannabis related) Associated Symptoms: nausea, vomiting. denies: diarrhea, constipation, dysuria, hematemesis, hematuria, anorexia - Related Data Previous Rx's Medication Instructions Recorded Last Taken Type levoFLOXacin [Levaquin TAB] 500 mg PO QDAY #7 tablet 01/22/21 Unknown Rx metroNIDAZOLE [Flagyl] 500 mg PO Q8HR #21 tablet 01/22/21 Unknown Rx Famotidine [Pepcid] 20 mg PO BID #20 tablet 03/28/21 Unknown Rx HYDROcodone/APAP 5-325 [[place] 1 - 2 each PO Q6HR PRN #10 tablet 03/28/21 Unknown Rx 5/325] Promethazine [Phenergan] 25 mg PO Q6HR PRN #20 tab 03/28/21 Unknown Rx Promethazine [Phenergan] 25 mg [place] Q6HR PRN #5 supp.rect 03/28/21 Unknown Rx Fluconazole [Diflucan TAB] 150 mg PO QDAY #3 08/24/21 Unknown Rx Hyoscyamine Subl [Levsin Sl 0.125 0.125 mg SL Q4HR PRN #20 tablet 08/24/21 Unknown Rx TAB] Nitrofurantoin [place]/M-Cryst 100 mg PO Q12HR #20 capsule 08/24/21 Unknown Rx [Macrobid CAP] traMADoL [Ultram] 50 mg PO Q6HR PRN #10 tablet 08/24/21 Unknown Rx Allergies Allergy/AdvReac Type Severity Reaction Status Date / Time aspirin Allergy Hives Verified 01/20/21 21:45 ED Review of Systems ROS: Stated complaint: STOMACH PAIN Other details as noted in HPI Comment: All other systems reviewed and negative ED Past Medical Hx - Past Medical History Additional medical history: pancreatitis (diagnosed twice) - Social History Smoking Status: Never Smoker Substance Use Type: Alcohol (Occasional), Marijuana - Medications Home Medications: Home Medications Medication Instructions Recorded Confirmed Last Taken Type levoFLOXacin [Levaquin TAB] 500 mg PO QDAY #7 tablet 01/22/21 Unknown Rx metroNIDAZOLE [Flagyl] 500 mg PO Q8HR #21 tablet 01/22/21 Unknown Rx Famotidine [Pepcid] 20 mg PO BID #20 tablet 03/28/21 Unknown Rx HYDROcodone/APAP 5-325 [[place] 1 - 2 each PO Q6HR PRN #10 tablet 03/28/21 Unknown Rx 5/325] Promethazine [Phenergan] 25 mg PO Q6HR PRN #20 tab 03/28/21 Unknown Rx Promethazine [Phenergan] 25 mg [place] Q6HR PRN #5 supp.rect 03/28/21 Unknown Rx Fluconazole [Diflucan TAB] 150 mg PO QDAY #3 08/24/21 Unknown Rx Hyoscyamine Subl [Levsin Sl 0.125 0.125 mg SL Q4HR PRN #20 tablet 08/24/21 Unknown Rx TAB] Nitrofurantoin [place]/M-Cryst 100 mg PO Q12HR #20 capsule 08/24/21 Unknown Rx [Macrobid CAP] traMADoL [Ultram] 50 mg PO Q6HR PRN #10 tablet 08/24/21 Unknown Rx ED Physical Exam - General Limitations: No Limitations General appearance: alert, in no apparent distress - Head Head exam: Present: atraumatic, normocephalic - Eye Eye exam: Present: normal appearance, PERRL, EOMI Pupils: Present: normal accommodation - ENT ENT exam: Present: normal exam, normal orophraynx, mucous membranes moist - Neck Neck exam: Present: normal inspection - Respiratory Respiratory exam: Present: normal lung sounds bilaterally. Absent: respiratory distress - Cardiovascular Cardiovascular Exam: Present: regular rate, normal rhythm. Absent: systolic murmur, diastolic murmur, rubs, gallop - GI/Abdominal GI/Abdominal exam: Present: soft, normal bowel sounds - Rectal Rectal exam: Present: deferred - Extremities Exam Extremities exam: Present: normal inspection - Back Exam Back exam: Present: normal inspection - Neurological Exam Neurological exam: Present: alert, oriented X3 - Psychiatric Psychiatric exam: Present: normal affect, normal mood - Skin Skin exam: Present: warm, dry, intact, normal color. Absent: rash ED Course Vital Signs 08/24/21 13:11 Temperature 98.3 F Pulse Rate 65 Respiratory 16 Rate Blood Pressure 143/78 [Left] O2 Sat by Pulse 100 Oximetry ED Medical Decision Making - Lab Data Result diagrams: 08/24/21 14:51 08/24/21 14:51 Lab Results 08/24/21 08/24/21 08/24/21 Range/Units 14:19 14:51 14:51 WBC 6.7 (4.5-11.0) K/mm3 RBC 5.44 H (3.65-5.03) M/mm3 Hgb 14.3 (11.8-15.2) gm/dl Hct 44.2 (35.5-45.6) % MCV 81 L (84-94) fl MCH 26 L (28-32) pg MCHC 32 (32-34) % RDW 16.0 H (13.2-15.2) % Plt Count 202 (140-440) K/mm3 Lymph % (Auto) 16.3 (13.4-35.0) % [place] % (Auto) 5.3 (0.0-7.3) % Eos % (Auto) 0.2 (0.0-4.3) % Baso % (Auto) 0.5 (0.0-1.8) % Lymph # (Auto) 1.1 L (1.2-5.4) K/mm3 [place] # (Auto) 0.4 (0.0-0.8) K/mm3 Eos # (Auto) 0.0 (0.0-0.4) K/mm3 Baso # (Auto) 0.0 (0.0-0.1) K/mm3 Seg Neutrophils % 77.7 H (40.0-70.0) % Seg Neutrophils # 5.2 (1.8-7.7) K/mm3 Sodium 142 (137-145) mmol/L Potassium 4.5 (3.6-5.0) mmol/L Chloride 105.1 (98-107) mmol/L Carbon Dioxide 20 L (22-30) mmol/L Anion Gap 21 mmol/L BUN 15 (9-20) mg/dL Creatinine 1.1 (0.8-1.3) mg/dL Estimated GFR > 60 ml/min BUN/Creatinine Ratio 14 % Glucose 152 H (75-100) mg/dL Calcium 9.3 (8.4-10.2) mg/dL Total Bilirubin 0.70 (0.1-1.2) mg/dL AST 22 (5-40) units/L ALT 24 (7-56) units/L Alkaline Phosphatase 85 (35-129) units/L Total Protein 7.3 (6.3-8.2) g/dL Albumin 4.7 (3.9-5) g/dL Albumin/Globulin Ratio 1.8 % Lipase 11 L (13-60) units/L Urine Color Yellow (Yellow) Urine Turbidity Slightly-cloudy (Clear) Urine pH 8.0 H (5.0-7.0) Ur Specific [place] 1.023 (1.003-1.030) Urine Protein 30 mg/dl (Negative) mg/dL Urine Glucose (UA) Neg (Negative) mg/dL Urine Ketones 20 (Negative) mg/dL Urine Blood Sm (Negative) Urine Nitrite Neg (Negative) Urine Bilirubin Neg (Negative) Urine Urobilinogen < 2.0 (<2.0) mg/dL Ur Leukocyte Esterase Sm (Negative) Urine WBC (Auto) 22.0 H (0.0-6.0) /HPF Urine RBC (Auto) 61.0 (0.0-6.0) /HPF U Epithel Cells (Auto) < 1.0 (0-13.0) /HPF Urine Bacteria (Auto) 1+ (Negative) /HPF Urine Mucus 2+ /HPF Urine Yeast (Budding) Few /HPF - Medical Decision Making This patient presents with abdominal pain of unclear etiology. Their evaluation has not identified a emergent etiology for the abdominal pain. Specifically, given the very benign exam, normal laboratory studies, and lack of significant risk factors, I have a very low suspicion for appendicitis, ischemic bowel, bowel perforation, or any other life threatening disease. I have discussed with the patient the level of uncertainty with undifferentiated abdominal pain and clearly explained the need to follow-up as noted on the discharge instructions, or return to the Emergency Department immediately if the pain worsens, develops fever, persistent and uncontrollable vomiting, or for any new symptoms or concerns. I discussed with the patient that this presentation today for abdominal pain could represent a significant risk for an acute abdominal process. Although the tests in the ED were essentially normal, there is still a possibility of a process such as appendicitis, diverticulitis, cholecystitis, ulcer, early bowel obstruction, mesenteric ischemia, kidney stone, or even kidney infection which could subsequently cause disability or . Did discuss the yeast found in the urine as well associated with the white blood cell count patient does report no known immunocompromising factors advised him the need to be reevaluated as that may have been associated with some of his symptoms . the patient understands that they must return within 24 hours for a recheck or see their physician within 24 hours for re-exam due to the possibility of significant surgical or medical process. Critical care attestation.: If time is entered above; I have spent that time in minutes in the direct care of this critically ill patient, excluding procedure time. ED Disposition Clinical Impression: Abdominal pain, UTI (urinary tract infection) Disposition: 01 HOME / SELF CARE / HOMELESS Is pt being admited?: No Does the pt Need Aspirin: No Condition: Stable Instructions: Urinalysis Test, Abdominal Pain, Adult, Urinary Tract Infection, Adult Prescriptions: Fluconazole [Diflucan TAB] 150 mg PO QDAY #3 Hyoscyamine Subl [Levsin Sl 0.125 TAB] 0.125 mg SL Q4HR PRN #20 tablet PRN Reason: Spasms Nitrofurantoin [place]/M-Cryst [Macrobid CAP] 100 mg PO Q12HR #20 capsule traMADoL [Ultram] 50 mg PO Q6HR PRN #10 tablet PRN Reason: Pain Referrals: [facility] [Provider Group] - 3-5 Days PRIMARY CARE, [Primary Care Provider] - 3-5 Days
== END 2021-08-24 18:38 | disposition home or self-care (01) ==
LOC: ED 13:01
DX: N39.0 Urinary tract infection, site not specified (principal); R10.9 Unspecified abdominal pain; Z88.6 Allergy status to analgesic agent; F10.20 Alcohol dependence, uncomplicated; F12.90 Cannabis use, unspecified, uncomplicated
CPT/HCPCS: 36415; 80053; 81001; 83690; 85025; 87086; 99284; J3490; Q0162